=== PATIENT | male | born 2000 | race Caucasian/White ===

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

== ENCOUNTER 2020-12-03 00:51 | Emergency (ER) | payer OTHER ==
[2020-12-03] MEDS ORDERED: LIDOCAINE 1% INJ 10MG/ML (20 ML MDV) SQ ONE (02:13)
[2020-12-03] MEDS ORDERED: BACITRACIN OINT 1 EACH PACKET TOPICAL STA (02:13)
--- NOTE | 2020-12-03 02:16 | ED ---
Skin/Abscess/FB HPI - General Chief complaint: Skin/Abscess/Foreign Body Stated complaint: Finger issues Time Seen by Provider: 12/03/20 01:37 Source: patient Mode of arrival: ambulatory Limitations: no limitations - History of Present Illness Initial comments: 20-year-old male patient presents to the emergency department today for evaluation of liver beneath the left middle finger. States that this occurred a couple of hours ago. He has been trying to remove it but has been unsuccessful. Patient denies any significant pain to the area. He believes it is a piece of fiberglass. States his tetanus is up-to-date. Denies any other injuries or concerns. - Related Data Home Medications Medication Instructions Recorded Confirmed ARIPiprazole [Abilify] 10 mg PO DAILY 08/11/16 08/11/16 Allergies Allergy/AdvReac Type Severity Reaction Status Date / Time No Known Allergies Allergy Verified 12/03/20 00:58 Review of Systems ROS Statement: Those systems with pertinent positive or pertinent negative responses have been documented in the HPI. ROS Other: All systems not noted in ROS Statement are negative. Past Medical History Past Medical History: No Reported History Additional Past Medical History / Comment(s): Aspberger's, attempted suicide History of Any Multi-Drug Resistant Organisms: None Reported Past Surgical History: No Surgical Hx Reported Past Psychological History: Anxiety, Depression Smoking Status: Never smoker Past Alcohol Use History: Occasional Past Drug Use History: Marijuana General Exam Limitations: no limitations General appearance: alert, in no apparent distress Respiratory exam: Present: normal lung sounds bilaterally. Absent: respiratory distress, wheezes, rales, rhonchi, stridor Cardiovascular Exam: Present: regular rate, normal rhythm, normal heart sounds. Absent: systolic murmur, diastolic murmur, rubs, gallop, clicks Extremities exam: Present: full ROM, normal capillary refill, other (There is a thin black subungual sliver to the left middle finger. No active bleeding.). Absent: tenderness, pedal edema, joint swelling, calf tenderness Neurological exam: Present: alert, oriented X3, CN II-XII intact Psychiatric exam: Present: normal affect, normal mood Skin exam: Present: warm, dry, intact, normal color. Absent: rash Course Vital Signs 12/03/20 12/03/20 00:52 02:35 Temperature 97.4 F L 98 F Pulse Rate 107 H 102 H Respiratory 20 22 Rate Blood Pressure 152/83 127/77 O2 Sat by Pulse 97 98 Oximetry Procedures - Forgein Body Removal Soft Tissue Consent Obtained: verbal consent Site: hand (Left middle finger) Anesthetic Used: lidocaine 1% Amount (mLs): 1 Foreign Body Suspected: Other (Fiberglass) Foreign Body Removed: partial removal Foreign Body Removal Technique: Instrumentation Patient Tolerated Procedure: well Medical Decision Making - Medical Decision Making 20-year-old male patient presented for evaluation of subungual sliver on the left middle finger. Area was anesthetized. I did attempt to trim the nail back in order to remove the sliver. Sliver would break away with each attempt at removal. Patient was quite anxious and wanted any further attempts at removal halted. Most of the sliver was removed. Bacitracin and dressing applied. He is instructed to follow-up with his primary care physician for recheck in 1-2 days. Return parameters were discussed in detail. He verbalizes understanding and agrees with this plan. My attending is Dr. Shukla. Disposition Clinical Impression: Subungual sliver of finger Disposition: HOME SELF-CARE Condition: Good Instructions (If sedation given, give patient instructions): Soft Tissue Foreign Body (ED) Additional Instructions: Keep area clean and dry. Cleanse twice daily with warm water and antibacterial soap. Return for any new, worsening, or concerning symptoms Is patient prescribed a controlled substance at d/c from ED?: No Referrals: None,Stated [Primary Care Provider] - 1-2 days Time of Disposition: 02:16
[2020-12-03] MEDS ORDERED: IBUPROFEN 600 MG STARTER PACK 4 TAB BTL PO STA (02:33)
[2020-12-03 02:36] VITALS: BP 127/77; PULSE 102; RESP 22; TEMP 98
== END 2020-12-03 02:41 | disposition home or self-care (01) ==
LOC: EC 00:51
DX: S60.453A Superficial foreign body of left middle finger, initial encounter (principal); W25.XXXA Contact with sharp glass, initial encounter; Y93.89 Activity, other specified
CPT/HCPCS: 99283; J2001